=== PATIENT | female | born 1945 | race Caucasian/White ===

== ENCOUNTER → 2017-06-30 | Outpatient (CLI) | payer MEDICARE, OTHER ==
[~2017-06-30] MED LIST: BAY PO; BG MC; COLACE100 MG PO; CYMBALTA30 M1 PO; FLUOXETINE HCL20 MG PO; FUROSEMIDE20 MG PO; GLIPIZIDE2.5 M1 PO; GLU5 PO; KEFLEX250 MG PO; LAC PO; LEVAQUIN250 MG PO; LORAZEPAM0.5 MG PO; LOSARTAN POTASS25 M1 PO; LOT20 PO; LOVASTATIN20 MG PO; LYRICA50 M1 PO; NEU300 PO; OMEPRAZOLE40 M1 PO; OXYC PO; POTASSIUM CHLO10 MEQ PO; PRI20 PO; PROVENTIL0.09 MG/A1 INH; PROZ20 PO; ROBAXIN500 MG PO; SIMVASTATIN20 M1 PO; TOPAMAX25 MG PO
== END | disposition home or self-care (01) ==
LOC: RD 12:30
DX: M54.16 Radiculopathy, lumbar region (principal); M70.61 Trochanteric bursitis, right hip